=== PATIENT | female | born 2005 | race Caucasian/White ===

== ENCOUNTER 2025-05-21 17:43 | Emergency (ER) | payer OTHER ==
[2025-05-21 18:25] LABS: Glucose, Urine (Dipstick) Normal (Negative); Leukocyte 100 (Negative); Protein, Urine (Dipstick) Negative (Neg-Trace); Specific Gravity, Urine 1.015 (1.005-1.030)
[2025-05-21 18:33] LABS: Bacteria/HPF 2+ HPF (None Seen); CAUTI Indications for Culture Pelvic or flank pain; Mucous/LPF 2+ LPF (<2+); RBC/HPF 0-3 HPF (0-3)
[2025-05-21 18:34] LABS: Urine Culture Reflex No No
[2025-05-21 19:31] LABS: #Basophils 0.06 10x3/uL (0.0-0.2); #Eosinophils 0.86 10x3/uL (0.0-0.5); #Monocytes 0.74 10x3/uL (0.0-1.1); #Neutrophils 6.33 10x3/uL (1.5-8.4); %Basophils 0.6 % (0.0-2.0); %Eosinophils 8.3 % (0.0-6.0); %Lymphocytes 22.5 % (18.0-47.0); %Monocytes 7.1 % (0.0-10.0); %Neutrophils 61.2 % (40.0-75.0); Hematocrit 34.4 % (34.9-44.5); Hemoglobin 12.1 g/dL (12.0-15.5); Mean Corpuscular Hemoglobin 31.3 pg (27.0-33.0); Mean Corpuscular Volume 88.9 fL (81.6-98.3); Platelet Count 239 10x3/uL (150-450); Red Blood Cell (RBC) Count 3.87 10x6/uL (3.90-5.03); White Blood Cell (WBC) Count 10.35 10x3/uL (3.5-10.5)
[2025-05-21 19:52] LABS: ALT (SGPT) 14 U/L (Less than 34); AST (SGOT) 17 U/L (11-34); Albumin 3.6 g/dL (3.1-4.5); Alkaline Phosphatase 47 U/L (40-100); Anion Gap 12 mmol/L (10-20); BUN (Urea Nitrogen) 8 mg/dL (8.4-21.0); Bilirubin, Total 0.2 mg/dL (0.3-1.2); Calc. Creatinine Clearance 0 mL/min (70-130); Calcium 8.7 mg/dL (7.8-10.44); Carbon Dioxide 22 mmol/L (22-29); Chloride 110 mmol/L (98-107); Globulin 2.6 g/dL (2.4-3.5); Glucose 85 mg/dL (70-105); Potassium 4.4 mmol/L (3.5-5.1); Sodium 140 mmol/L (136-145)
[2025-05-22 22:53] LABS: Chlam.trachomatis by PCR,Urine Not Detected (NotDetected); GC N.gonorrhoeae PCR,UrineVOID Not Detected (NotDetected)
== END 2025-05-21 20:36 | disposition home or self-care (01) ==
LOC: CSHERS 17:43
DX: O23.42 Unspecified infection of urinary tract in pregnancy, second trimester (principal); Z3A.17 17 weeks gestation of pregnancy
CPT/HCPCS: 36415; 76815; 80053; 81001; 85025; 86850; 86900; 86901; 87086; 87480; 87491; 87510; 87591; 87660